=== PATIENT | female | born 1975 | race Caucasian/White ===

== ENCOUNTER 2016-04-26 10:10 | Emergency (ER) | payer MEDICAID ==
[~2016-04-26] VITALS: Ht 165.1 cm; Wt 76.9 kg
[2016-04-26 11:43] VITALS: BP 140/90
== END 2016-04-26 11:46 | disposition home or self-care (01) ==
LOC: ED 10:39
DX: H66.91 Otitis media, unspecified, right ear (principal); J20.9 Acute bronchitis, unspecified
CPT/HCPCS: 71020

== ENCOUNTER 2019-04-07 15:22 | Emergency (ER) | payer MEDICAID ==
[~2019-04-07] VITALS: Ht 165.1 cm; Wt 80.3 kg
[2019-04-07 15:48] VITALS: BP 131/84
== END 2019-04-07 17:05 | disposition home or self-care (01) ==
LOC: ED 16:55
DX: B34.9 Viral infection, unspecified (principal); R51 Headache; R94.31 Abnormal electrocardiogram [ECG] [EKG]; Z87.891 Personal history of nicotine dependence
CPT/HCPCS: 71046; 93005; 99283

== ENCOUNTER 2020-02-25 16:50 | Emergency (ER) | payer MEDICAID ==
[~2020-02-25] VITALS: Ht 165.1 cm; Wt 83.6 kg
--- NOTE | 2020-02-25 17:52 | NUR ---
[employer]: PT TO ROOM FROM [facility] WOLF
[2020-02-25] MEDS ORDERED: FLUORESCEIN OPHTHALMIC 1 MG STRIP EACHEYE ONE (18:00)
[2020-02-25] MEDS ORDERED: PROPARACAINE OPHTH 0.5%, 15ML EACHEYE ONE (18:00)
[2020-02-25] MEDS ORDERED: PROPARACAINE OPHTH 0.5%, 15ML ONE ×2 (18:04→18:12)
[2020-02-25] MEDS ORDERED: FLUORESCEIN OPHTHALMIC 1 MG STRIP ONE ×2 (18:04→18:12)
--- NOTE | 2020-02-25 18:56 | NUR ---
REPORT RECIEVED FROM CHHAYA PINON
[2020-02-25 19:05] VITALS: BP 135/91
== END 2020-02-25 19:29 | disposition home or self-care (01) ==
LOC: ED 18:30
DX: B02.9 Zoster without complications (principal); Z88.2 Allergy status to sulfonamides
CPT/HCPCS: 99283